=== PATIENT | male | born 1960 | race Caucasian/White ===

== ENCOUNTER → 2018-08-31 | Outpatient (CLI) | payer OTHER ==
--- NOTE | 2018-08-31 15:12 | RAD ---
EXAM: AP and lateral views of the right knee DATE: 08/31/2018 12:00 AM INDICATION: Chronic right knee pain COMPARISON: No Prior FINDINGS: Small right knee joint effusion. No evidence of acute fracture or dislocation. Joint spaces are preserved without significant degenerative/proliferative change. Subtle chondrocalcinosis lateral compartment. IMPRESSION: 1. No evidence of acute fracture or dislocation. 2. Subtle chondrocalcinosis lateral compartment. EXAM: AP and lateral views of the lumbar spine DATE: 08/31/2018 12:00 AM INDICATION: Chronic knee pain, chronic back pain COMPARISON: No Prior FINDINGS: AP and lateral views of the lumbar spine were submitted for evaluation. For the purposes of this report, small ribs are seen at L1. There are 5 nonrib-bearing lumbar-type vertebral bodies. Vertebral body heights are preserved. No evidence for acute fracture. Disc heights are grossly preserved. Mild facet degenerative change L2-3 and below with moderate to severe facet degenerative change L4-5 and L5-S1. IMPRESSION: 1. For the purposes of this report, very small ribs are seen at T12 with additional 5 nonrib-bearing lumbar-type vertebral bodies. 2. Negative acute fracture or subluxation. 3. The lumbar spine degenerative changes most prominent at L4-5 and L5-S1. Electronically signed by: Jero Mota MD (08/31/2018 3:09 PM) [facility]
== END | disposition home or self-care (01) ==
LOC: RAD 09:19
PROVIDERS: ATTEND Family Medicine
DX: M11.261 Other chondrocalcinosis, right knee (principal); M47.817 Spondylosis without myelopathy or radiculopathy, lumbosacral region; M25.461 Effusion, right knee; G89.29 Other chronic pain; E11.9 Type 2 diabetes mellitus without complications
CPT/HCPCS: 72100; 73560